=== PATIENT | female | born 1975 | race Two or more races ===

== ENCOUNTER 2018-04-13 05:38 | Day surgery (SDC) | payer BC ==
[2018-04-13] MEDS ORDERED: LR 1,000 ML IV ONE (05:48)
[2018-04-13] MEDS ORDERED: LIDOCAINE 1% 2 ML INJ ID PRN (05:48)
[2018-04-13] MEDS ORDERED: BUPIVACAINE/EPI 0.5% 30 ML SDV ONE (06:36)
[2018-04-13] MEDS ORDERED: MIDAZOLAM 2 MG/2 ML VIAL IVP ONE (06:55)
--- NOTE | 2018-04-13 06:55 | PDANEPAE ---
ANE Past Medical History - Cardiovascular History Hx Hypertension: No Hx Arrhythmias: No Hx Chest Pain: No Hx Coronary Artery / Peripheral Vascular Disease: No Hx CHF / Valvular Disease: No Hx Palpitations: No Cardiovascular History Comment: MILD HEART MURMUR - Pulmonary History Hx COPD: No Hx Asthma/Reactive Airway Disease: Yes Hx Recent Upper Respiratory Infection: No Hx Oxygen in Use at Home: No Hx Sleep Apnea: No Sleep Apnea Screening Result - Last Documented: Negative Pulmonary History Comment: MILD INHALERS - Neurologic History Hx Cerebrovascular Accident: No Hx Seizures: No Hx Dementia: No Neurologic History Comment: MIGRAINES - Endocrine History Hx Diabetes: No - Renal History Hx Renal Disorders: No - Liver History Hx Hepatic Disorders: No - Neurological & Psychiatric Hx Hx Neurological and Psychiatric Disorders: Yes Neurological / Psychiatric History Comment: ANXIETY IN PAST - Cancer History Hx Cancer: No - Congenital Disorder History Hx Congenital Disorders: No - GI History Hx Gastrointestinal Disorders: Yes Gastrointestinal History Comment: STOMACH PAIN & NAUSEA - Other Health History Other Health History: NEG - Chronic Pain History Chronic Pain: Yes (SPINAL PAIN) - Surgical History Prior Surgeries: COLONOSCOPY & EGD. SINUS SURG-MULTIPLE. EAR SURG. LAPAROSCOPIES - 15. MARCIA ANKLES - RECONSTRUCTION. FOOT SURG. BLADDER SLING. WRIST SURG. LASIK. TONSILLECTOMY. HYSTERECTOMY, OOPHERECTOMY ANE Review of Systems Review of Systems: - Exercise capacity METS (RN): 4 METS ANE Patient History - Allergies Allergies/Adverse Reactions: adhesive Allergy (Verified 03/28/18 10:42) LABORED BREATHING, HIVES, & ITCHING sulfamethoxazole [From Bactrim] Allergy (Verified 03/28/18 10:41) HIVES,ITCHING trimethoprim [From Bactrim] Allergy (Verified 03/28/18 10:41) HIVES,ITCHING - Home Medications Home Medications: Advil 03/28/18 [Last Taken 03/30/18] Benadryl 03/28/18 [Last Taken 03/30/18] Cyclobenzaprine 03/28/18 [Last Taken Unknown] Dymista Nasal [place] 03/28/18 [Last Taken 03/30/18] Herbals/Supplements -Info Only 03/28/18 [Last Taken 04/06/18] Hydrocodone-Acetamin 5-325 mg 03/28/18 [Last Taken Unknown] Mucinex 03/28/18 [Last Taken 04/06/18] Progesterone 03/28/18 [Last Taken 04/12/18 22:00] Testosterone 03/28/18 [Last Taken Unknown] - NPO status NPO Since - Liquids (Date): 04/13/18 NPO Since - Liquids (Time): 05:45 NPO Since - Solids (Date): 04/12/18 NPO Since - Solids (Time): 18:30 - Smoking Hx Smoking Status: Never smoked - Family Anes Hx Family Hx Anesthesia Complications: NEG ANE Labs/Vital Signs - Vital Signs Blood Pressure: 172/107 Heart Rate: 72 Respiratory Rate: 16 O2 Sat (%): 98 Height: 149.86 cm Weight: 87.09 kg ANE Physical Exam - Airway Mallampati Score: Class 2 - ASA Status ASA Status: II ANE Anesthesia Plan Anesthesia Plan: general endotracheal anesthesia
[2018-04-13] MEDS ORDERED: fentaNYL 100 MCG/2 ML INJ ONE ×4 (07:01→09:58)
[2018-04-13] MEDS ORDERED: PROPOFOL 200 MG/20 ML VIAL ONE (07:02)
[2018-04-13] MEDS ORDERED: ONDANSETRON 4 MG/2 ML VIAL ONE ×2 (07:04→09:29)
[2018-04-13] MEDS ORDERED: ROCURONIUM 50 MG/5 ML VIAL ONE (07:04)
[2018-04-13] MEDS ORDERED: METOCLOPRAMIDE 10 MG/2 ML VIAL ONE (07:04)
--- NOTE | 2018-04-13 07:18 | PDGENHP ---
History and Physical History and Physical: Assessment and Plan: 1. Endometriosis, pelvic peritoneum Angi symptoms are concerning for persistent endometriosis. We reviewed all conservative and surgical options. At the end of our discussion she is interested in surgical exploration. This will be a robotic excision of endometriosis and possible cystoscopy. 2. Pelvic pain in female Subjective: Patient ID: Angi Ogden is a 42 y.o. female who presents to [facility] for endometriosis. HPI Angi Ogden presents for a preoperative visit. She is scheduled for a biotic excision of endometriosis.. The risks, benefits, and alternatives were presented and informed consent was obtained. 40 minutes of this 40 minute appointment was spent counceling, reviewing the procedure in detail, and discussing the preoperative and postoperative instructions. Below is a copy of our prior visit note. Angi is a 42 y/o para 1 who requests a consult for endometriosis. She has an extensive history of endometriosis starting with her first surgery at age 14 for cysts, and has 8-9 laparoscopies. Her most recent was in 06/2017 with feng Navarro. Regarding her surgeries, she has over the course of time had all of her reproductive organs removed, with the uterus removed in 2015. Her left ovay was left during that procedure, but removed in 2017 due to endometrioma and bowel adhesions. She is now on progesterone/testosterone compounded cream as well as progestrone tablets QPM prescribed by a hormone specialist. She is unsure of the doses. She feels better from a hormone standpoint since going on HRT with less menopausal side effects, but her pelvic pain persists. She had one spontaneous after years of infertility approx 5 years ago. She and her spouse tried IUI X 4 from [id number] but were able to conceive during that time. She took clomid durign those months. She was previously on lupron for 4-6 months after one of her surgeries and felt great from a pain standpoint, but had a lot of side effects from the medication and stopped. She persists with the above mentioned pelvic pain. It is mostly on the left side , but also has right sided involvement that is cramping and not cyclic. She denies radiatin gpain, but she does complain of shortness of breath with activities as well as intermittent chest pain. She has asthma and takes a PRN albuterol inhaler. Angi is very concerned that she has endo on her diaphragm or in her lungs. Along with her pain, she also has bowel and bladder complaints. She notes gas, cramping, diarrhea which is constant and doesn't change with medications as well as nausea and dyschezia. She saw a GI in 08/26 who did a colonoscopy and endocsopy along with "other tests" which she does not have the results for. The colonoscopy/EGD were normal per her report. Her bladder symptoms include frequency, nocturia. She had a mesh sling placed in 2017 for JHON. Those symptoms have resolved with mesh placement. She also notes dyspareunia that resembles her pelvic pain. Discussed that it sounds like she has recurrent endometriosis vs. Adhesions and she would like to schedule a surgery with Dr. Ernandez. Informed patient that due to her thoracic and bowel symptoms, will discuss her case with Dr. Ernandez and see if he has any other recommendations for surgery consultations. See patient chart for PMH, SH, allergies and social history. She is currently receiving epidural injections for a lumbar spine herniated disc. Her current daily medicaitons include the HRT and vitamin D. PastMedicalHistory Past Medical History: Diagnosis Date Allergy to pollen Endometriosis Gastrointestinal disorder Heart murmur History of infertility Mental disorder Neurologic disorder herniated cervical,thoracic and lumbar discs Pulmonary disease PastSurgicalHistory Past Surgical History: Procedure Laterality Date HYSTERECTOMY OVARY REMOVAL 2017 PELVIC LAPAROSCOPY URETHRA SURGERY CURRENT MEDICATIONS: Current Outpatient Medications Medication Sig 5-hydroxytryptophan, 5-HTP, (5-HTP PO) albuterol HFA 90 mcg/actuation inhaler Inhale 1-2 puffs into the lungs. celecoxib (CELEBREX) 200 mg capsule COMPOUNDED PRODUCT Product Name: Compounded progesterone/testosterone cream Components/Strengths: Directions: cyanocobalamin 1,000 mcg/mL injection Inject 1,000 mcg into the muscle. DIINDOLYLMETHANE, BULK, MISC diphenhydramine HCl (BENADRYL PO) ergocalciferol, vitamin D2, (VITAMIN D PO) guaiFENesin (MUCINEX) 600 mg ER biphasic tablet Take 600 mg by mouth. progesterone (PROMETRIUM) 200 mg capsule Take 200 mg by mouth. pseudoephedrine (SUDAFED) 30 mg tablet Take 30 mg by mouth every 4 hours as needed for Congestion. No current facility-administered medications for this visit. ALLERGIES: Adhesive; Bactrim [sulfamethoxazole-trimethoprim]; and Ibuprofen I have reviewed, verified and agree with the past medical, surgical, , family, social and ROS history as documented by the RN today. Objective: Vital Signs: Visit Vitals BP 134/86 Pulse 88 Temp 36.8 C (98.3 F) (Temporal) Resp 16 Ht 1.499 m (4' 11") Wt 91.4 kg (201 lb 6.4 oz) SpO2 96% BMI 40.68 kg/m Physical Exam Gen: This is an alert, well developed woman in no distress. Neuro: She moves all extremities. Psych: She is appropriate, oriented, with normal affect. Neck: No thyroid enlargement, adenopathy, or tenderness. Lungs: Clear to ascultation, no wheezes or rales. Heart: Regular rate and rhythm without obvious murmurs. Abdomen: Soft, non-tender, without guarding, rebound, or masses. Extremities: No edema or cyanosis. Pelvic: Normal external genitalia. Non-gaping introitus, vagina without discharge, adequately estrogenized, no significant prolapse. She is tender at the vaginal cuff and posterior cul-de-sac. DATA: I have reviewed the pertinent medical records. TIME/COMMUNICATION: I personally spent a total of 60 minutes. Of that 50 minutes was counseling/ coordination of patient's care. See my note above for details. Baldev Ernandez MD Board Certified Female Pelvic Medicine and Reconstructive Surgery Director of Minimally Invasive Gynecologic Surgery, [facility], [place] [facility] Surgeon in Minimally Invasive Gynecologic Surgery [facility] Surgeon in Robotic Surgery
--- NOTE | 2018-04-13 07:18 | PDHPUP ---
History & Physical Update H&P update statement: This history and physical update is based on an assessment of the patient which was completed after admission or registration (within 24 hours), but prior to the surgery/procedure. H&P update: H&P reviewed & patient examined, no change in patient's condition since H&P completed
[2018-04-13] MEDS ORDERED: CEFAZOLIN 2 GM/DEXTROSE/100 ML BAG IV ONE (07:43)
[2018-04-13] MEDS ORDERED: ceFAZolin 2 GM/DEXTROSE 100 ML IV ONE (07:52)
[2018-04-13] MEDS ORDERED: PHENYLEPHRINE HCL 100 MCG/ML SYR ONE (07:55)
[2018-04-13] MEDS ORDERED: SUGAMMADEX SODIUM 200 MG/2 ML VIAL IVP ONE (08:56)
--- NOTE | 2018-04-13 09:14 | POSTOPPROG ---
Post Op Note Date of Operation: 04/13/18 Surgeon: Baldev Ernandez Animal Rehabilitator: Shayna Ponce Anesthesia: GET(General Endotracheal) Pre-op Diagnosis: Endometriosis Post-op Diagnosis: Same Procedure: Robotic excision of endo, bilat ureterolysis, cysto Findings: Endo Inf/Abcess present in the surg proc area at time of surgery?: No EBL: Minimal Complications: None Specimen(s): endo
[2018-04-13] MEDS ORDERED: NALOXONE HCL 0.4 MG/ML INJ IVP PRN (09:19)
[2018-04-13] MEDS ORDERED: DEXAMETHASONE 4 MG/ML VIAL IVP PRN (09:19)
[2018-04-13] MEDS ORDERED: ALBUTEROL 3 ML DEYVIAL IH PRN (09:19)
[2018-04-13] MEDS ORDERED: LR 500 ML IV PRN (09:19)
[2018-04-13] MEDS ORDERED: PROMETHAZINE HCL 25 MG/ML INJ IVP PRN (09:19)
--- NOTE | 2018-04-13 09:20 | POSTANESTH ---
Post Anesthetic Evaluation Cardiovascular Status: Normal, Stable Respiratory Status: Similar to Pre-op Cond. Level of Consciousness/Mental Status: Can Participate in Eval Pain Control: Adequate, Prn Tx Ordered Nausea/Vomiting Control: Adequate, Prn Tx Ordered Complications Possibly Related to Anesthesia: None Noted
[2018-04-13] MEDS: fentaNYL 100 MCG/2 ML INJ IVP PRN ×3 (09:32→09:58)
[2018-04-13] MEDS ORDERED: DEXAMETHASONE 4 MG/ML VIAL ONE (09:36)
[2018-04-13] MEDS ORDERED: HYDROmorphONE/DILAUDID 1 MG/ML INJ ONE (09:52)
[2018-04-13] MEDS: HYDROmorphONE/DILAUDID 1 MG/ML INJ IVP PRN ×3 (09:53→10:16)
--- NOTE | 2018-04-13 10:02 | GOP ---
DATE OF OPERATION: 04/13/2018 SURGEON: Baldev Ernandez MD CHANGE CONTROL MANAGER: Shayna Ponce CFA. ANESTHESIA: General. PREOPERATIVE DIAGNOSIS: 1. Pelvic pain. 2. Endometriosis. 3. Urinary frequency and bladder pain. POSTOPERATIVE DIAGNOSIS: 1. Pelvic pain. 2. Endometriosis. 3. Urinary frequency and bladder pain. PROCEDURE PERFORMED: 1. Robotic excision of endometriosis in cul-de-sac bilateral ovarian fossae. 2. Bilateral ureterolysis. 3. Cystoscopy. FINDINGS: SPECIMENS: Pelvic peritoneum with endometriosis. ESTIMATED BLOOD LOSS: Less than 20 mL. DESCRIPTION OF PROCEDURE: The patient was taken to the operating room where she was identified. Gen eral anesthesia was administered and found to be adequate. She was placed in the lithotomy position, and prepared and draped in normal sterile fashion. A Zimmer catheter was placed in her bladder. A 1 cm infraumbilical incision was made with a scalpel. The Veress needle with the CO2 gas flowing w as advanced into the peritoneal cavity. The abdomen was then insufflated with carbon dioxide gas. T he 12 mm trocar followed by the laparoscope were then inserted. The upper abdomen was unremarkable. There was no evidence of endometriosis on either diaphragm, liver, stomach, or bowel. Two lateral p orts were placed in the right, 1 on the left, under direct visualization. She then was placed in Tayo [place] position, and the da Nam robot docked on the left side. The instruments were then broug ht into the abdominal cavity under direct visualization. She was found to have endometriosis in the posterior cul-de-sac overlying the vaginal cuff, as well as both ovarian fossae overlying the distal ureters. A bilateral ureterolysis was required. The peritoneum over the pelvic brims were incised. The ureters were gently dissected free and lateralized from the pelvic brim all the way down to the bladder. Once this was accomplished, the ovarian fossa peritoneum was obtained. The completely exci sed bilaterally. The endometriosis and peritoneum over the posterior cul-de-sac and vaginal cuff wer e then excised. The specimens were sent to Pathology for permanent section. The pelvis was irrigate d with sterile saline. Yamini powder was then placed overlying the raw areas for further hemostasis. The robot was then undocked. The fascia was closed with 0 Vicryl, skin with 4-0 Monocryl and surgi nasir adhesive. Cystoscopy was then performed. Both ureters had vigorous jets of urine. There was no evidence of bl adder, nor urethral injury seen. She had approximately 5 Hunner's type lesions of the bladder mucosa . Photographs were taken. The bladder was then drained. The patient taken to PACU, awake in stable condition. COMPLICATIONS: None. DISPOSITION: Patient stable to PACU. /[id number]/MODL
[2018-04-13] MEDS ORDERED: KETOROLAC 30 MG/1 ML SDV ONE (10:04)
[2018-04-13] MEDS ORDERED: DIAZEPAM 5 MG/ML 1 ML SYR ONE (10:04)
[2018-04-13] MEDS: DIAZEPAM 5 MG/ML 1 ML SYR IVP PRN ×2 (10:22→10:38)
[2018-04-13] MEDS ORDERED: KETOROLAC 30 MG/1 ML SDV IVP ONE (10:30)
[2018-04-13] MEDS ORDERED: OXYCODONE/APAP 5/325 TAB PO ONE (11:15)
[2018-04-13 13:39] VITALS: BP 121/83
== END 2018-04-13 13:59 | disposition home or self-care (01) ==
LOC: FSGY 05:38
PROVIDERS: ATTEND Obstetrics & Gynecology
PROC: 0WBH4ZZ Excision of Retroperitoneum, Percutaneous Endoscopic Approach (ICD-10-PCS; principal; 2018-04-13 07:15)
PROC: 0UBF4ZZ Excision of Cul-de-sac, Percutaneous Endoscopic Approach (ICD-10-PCS; principal; 2018-04-13 07:15)
PROC: 0UBG4ZZ Excision of Vagina, Percutaneous Endoscopic Approach (ICD-10-PCS; principal; 2018-04-13 07:15)
PROC: 0TJ98ZZ Inspection of Ureter, Via Natural or Artificial Opening Endoscopic (ICD-10-PCS; principal; 2018-04-13 07:15)
DX: N80.3 Endometriosis of pelvic peritoneum (principal); N80.4 Endometriosis of rectovaginal septum and vagina; R10.2 Pelvic and perineal pain; R35.0 Frequency of micturition; R39.89 Other symptoms and signs involving the genitourinary system
CPT/HCPCS: J0690; J1100; J1170; J1885; J2250; J2370; J2405; J2704; J2765; J3010; J3360